=== PATIENT | male | born 1980 | race American Indian/Alaskan Native ===

== ENCOUNTER 2017-06-14 19:22 | Emergency (ER) | payer OTHER ==
[2017-06-14] MEDS ORDERED: TYLENOL ONE (19:28)
[2017-06-14] MEDS ORDERED: TYLENOL PO ONE (19:31)
[2017-06-15 16:25] VITALS: BP 147/70
[2017-06-15 16:38] LABS: Bilirubin,Urine NEG (Negative); Blood,Urine NEG (Negative); Color,Urine Yellow (Yellow); Mucus,Urine FEW /HPF; Nitrite,Urine NEG (Negative); Protein,Urine <15 mg/dL mg/dL (Negative); Urobilinogen,Urine < 2.0 mg/dL (<2.0)
--- NOTE | 2017-06-15 16:41 | Emergency Department Report ---
ED Fever HPI - General Chief Complaint: Fever Stated Complaint: COLD SX Source: patient, family Exam Limitations: no limitations - History of Present Illness Initial Comments: 37 yo male who comes in today due to fever, chills, and body aches. He states that these complaints started on Tuesday of this week. 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 Also admits that other co-workers are having the same complaints. Temperature 101.6 in the ED on today. Denies any past medical history or allergies to medications. Timing/Duration: other (Tuesday) Fever Severity/Quality: other (101.6. 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 Associated Symptoms: muscle aches, other (back pain ) ED Review of Systems ROS: Stated complaint: COLD SX Other details as noted in HPI Constitutional: fever, malaise Eyes: denies: eye pain, eye discharge, vision change ENT: denies: ear pain, throat pain Respiratory: denies: cough, shortness of breath, wheezing Cardiovascular: denies: chest pain, palpitations Endocrine: no symptoms reported Gastrointestinal: denies: abdominal pain, nausea, diarrhea Genitourinary: denies: urgency, dysuria Musculoskeletal: back pain, other (body aches ) Skin: denies: rash, lesions Neurological: denies: headache, weakness, paresthesias Psychiatric: denies: anxiety, depression Hematological/Lymphatic: denies: easy bleeding, easy bruising ED Past Medical Hx - Past Medical History Previous Medical History?: No - Surgical History Past Surgical History?: No - Social History Smoking Status: Current Some Day Smoker Substance Use Type: Alcohol - Medications Home Medications: Home Medications Medication Instructions Recorded Confirmed Last Taken Type Oseltamivir [Tamiflu] 75 mg PO BID #10 cap 06/15/17 Unknown Rx ED Physical Exam - General Limitations: No Limitations General appearance: alert, in no apparent distress - Head Head exam: Present: atraumatic, normocephalic - Eye Eye exam: Present: normal appearance - ENT ENT exam: Present: mucous membranes moist - Neck Neck exam: Present: normal inspection - Respiratory Respiratory exam: Present: normal lung sounds bilaterally. Absent: respiratory distress - Cardiovascular Cardiovascular Exam: Present: regular rate, normal rhythm. Absent: systolic murmur, diastolic murmur, rubs, gallop - GI/Abdominal GI/Abdominal exam: Present: soft, normal bowel sounds - Extremities Exam Extremities exam: Present: normal inspection - Back Exam Back exam: Present: tenderness (bilateral lumbosacral tenderness ) - Neurological Exam Neurological exam: Present: alert, oriented X3 - Psychiatric Psychiatric exam: Present: normal affect, normal mood - Skin Skin exam: Present: warm, dry, intact, normal color. Absent: rash ED Course Vital Signs 06/14/17 06/15/17 19:29 16:24 Temperature 101.6 F H 98.3 F Pulse Rate 75 69 Respiratory 18 18 Rate Blood Pressure 119/69 Blood Pressure 147/70 [Right] O2 Sat by Pulse 100 100 Oximetry - Reevaluation(s) Reevaluation #1: 06/15/17 16:43 Temperature on re-eval 98.3 after tylenol. ED Medical Decision Making - Medical Decision Making Influenza swab negative. U/A revealed trace leukocyte esterase. Influenza Fever Viral syndrome - Differential Diagnosis Influenza, fever, viral syndrome Critical care attestation.: If time is entered above; I have spent that time in minutes in the direct care of this critically ill patient, excluding procedure time. ED Disposition Clinical Impression: Influenza, Fever Disposition: DC-01 TO HOME OR SELFCARE Is pt being admited?: No Does the pt Need Aspirin: No Condition: Undetermined Instructions: Influenza (ED), Fever in Adults (ED) Additional Instructions: Take medicine as prescribed. Please also see the fever instructions. May take tylenol 650 mg by mouth every 6-8 hours as needed for temperature greater than 100.4. Remember to hydrate also until better. Prescriptions: Oseltamivir [Tamiflu] 75 mg PO BID #10 cap Referrals: DANA SHETTY MD [Primary Care Provider] - 3-5 Days Time of Disposition: 17:07
== END 2017-06-15 17:33 | disposition home or self-care (01) ==
LOC: ED 19:22
DX: J11.1 Influenza due to unidentified influenza virus with other respiratory manifestations (principal); R50.81 Fever presenting with conditions classified elsewhere; F17.200 Nicotine dependence, unspecified, uncomplicated
CPT/HCPCS: 81001; 87400; 99283

== ENCOUNTER 2019-11-03 16:12 | Emergency (ER) | payer SELFPAY ==
[2019-11-03 16:21] VITALS: BP 109/75
--- NOTE | 2019-11-03 17:00 | Emergency Department Report ---
Chief Complaint: Sore Throat Stated Complaint: THROAT PAIN - HPI History of Present Illness: 39-year-old -[place] male presents to the emergency room complaining of a sore throat this is been intermittent x1 month. Patient is taking nothing for pain just been using throat lozenges. 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 Patient denies any fever chills no nausea no vomiting. Patient denies any runny nose nasal congestion or headache. - Exam Vital Signs: Vital Signs 11/03/19 16:16 Temperature 98.3 F Pulse Rate 61 Respiratory 20 Rate Blood Pressure 109/75 O2 Sat by Pulse 96 Oximetry Physical Exam: Gen: alert oriented NAD HEENT: Oral mucosa moist patent tonsils are non-hypertrophic not erythematous there is no lymphadenopathy appreciated Cardic: regular rate and rhythm no murmurs appreciated Resp: Clear to auscultation bilateral no wheezing no rales or rhonchi. MSE screening note: Focused history and physical exam performed. Due to findings the following was ordered: 39-year-old -[place] male presents to the emergency room complaining of a sore throat this is been intermittent x1 month. Patient is taking nothing for pain just been using throat lozenges. 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 Patient denies any fever chills no nausea no vomiting. Patient denies any runny nose nasal congestion or headache. Recommend taking [id number] Tylenol or ibuprofen or naproxen for pain management. Follow-up with your primary care provider. ED Disposition for MSE Disposition: Z- MED SCREENING EXAM-LEFT Is pt being admited?: No Does the pt Need Aspirin: No Condition: Stable Additional Instructions: Recommend taking [id number] Tylenol or ibuprofen or naproxen. Follow-up with the primary care provider. Referrals: JOAQUIN RAI MD [Staff Physician] - 3-5 Days Forms: Work/School Release Form(ED)
== END 2019-11-03 17:04 | disposition left against medical advice (07) ==
LOC: ED 16:12
DX: R07.0 Pain in throat (principal); Z53.21 Procedure and treatment not carried out due to patient leaving prior to being seen by health care provider

== ENCOUNTER 2021-02-13 16:42 | Emergency (ER) | payer SELFPAY ==
[2021-02-13 17:20] VITALS: BP 132/86
[2021-02-13] MEDS ORDERED: IBUPROFEN 600 MG TAB PO ONE (17:20)
--- NOTE | 2021-02-13 17:21 | Emergency Department Report ---
ED General Adult HPI - General Chief complaint: Chest Pain Stated complaint: CHEST PAIN Time Seen by Provider: 02/13/21 17:07 Source: patient Mode of arrival: Ambulatory Limitations: No Limitations - History of Present Illness Initial comments: 40-year-old male who reports no significant past medical history presents to the ER today with complaints of left-sided chest pain. Patient points to his left upper mid axillary area as to where his pain is located. He states that the pain is mainly when he touches it. He denies any pain with deep breaths. He denies any shortness of breath, nausea, vomiting, cough, fever or chills. He denies any injury but does admit to strenuous activity at work. He has not tried taking anything for the pain. He states that he was concerned and wanted to come having it checked. He denies any extremity swelling or calf pain. He states that he vapes off and on no illicit drug use. He states that his mom has congestive heart failure with otherwise no known history of MIs, or any other family history of heart disease. He denies any risk factors for PE/DVT. MD Complaint: left chest pain underneath left arm -: Gradual (yesterday) - Related Data Previous Rx's Medication Instructions Recorded Last Taken Type Oseltamivir [Tamiflu] 75 mg PO BID #10 cap 06/15/17 Unknown Rx Ibuprofen [Motrin] 600 mg PO Q8H PRN #30 tablet 02/13/21 Unknown Rx Allergies Allergy/AdvReac Type Severity Reaction Status Date / Time No Known Allergies Allergy Unverified 06/14/17 19:29 ED Review of Systems ROS: Stated complaint: CHEST PAIN Other details as noted in HPI Comment: All other systems reviewed and negative Constitutional: denies: chills, fever Eyes: denies: eye pain, eye discharge, vision change ENT: denies: ear pain, throat pain Respiratory: denies: cough, shortness of breath, wheezing Cardiovascular: chest pain. denies: palpitations, edema, syncope, paroxysmal nocturnal dyspnea Gastrointestinal: denies: abdominal pain, nausea, vomiting, diarrhea, constip ation, hematemesis, hematochezia Genitourinary: denies: urgency, dysuria, frequency, hematuria, discharge, testicular pain, testicular mass Musculoskeletal: denies: back pain, joint swelling, arthralgia Skin: denies: rash, lesions, change in color, change in hair/nails, pruritus Neurological: denies: headache, weakness, numbness, paresthesias, confusion, abnormal gait, vertigo Psychiatric: denies: anxiety, depression, auditory hallucinations, visual hallucinations, homicidal thoughts, suicidal thoughts Hematological/Lymphatic: denies: easy bleeding, easy bruising ED Past Medical Hx - Surgical History Additional Surgical History: Umbilical hernia repair - Social History Smoking Status: Never Smoker Substance Use Type: Alcohol - Medications Home Medications: Home Medications Medication Instructions Recorded Confirmed Last Taken Type Oseltamivir [Tamiflu] 75 mg PO BID #10 cap 06/15/17 Unknown Rx Ibuprofen [Motrin] 600 mg PO Q8H PRN #30 tablet 02/13/21 Unknown Rx ED Physical Exam - General Limitations: No Limitations General appearance: alert, in no apparent distress - Head Head exam: Present: atraumatic, normocephalic, normal inspection - Eye Eye exam: Present: normal appearance, PERRL, EOMI Pupils: Present: normal accommodation - Neck Neck exam: Present: normal inspection, full ROM - Respiratory Respiratory exam: Present: normal lung sounds bilaterally, chest wall tenderness (mild point tenderness left upper mid axillary area without any swelling, erythema, deformity or bruising ). Absent: respiratory distress, wheezes, rales, rhonchi, stridor - Cardiovascular Cardiovascular Exam: Present: regular rate, normal rhythm, normal heart sounds - GI/Abdominal GI/Abdominal exam: Present: soft. Absent: distended, tenderness, normal bowel sounds - Extremities Exam Extremities exam: Present: normal inspection. Absent: pedal edema, calf tenderness - Neurological Exam Neurological exam: Present: alert, oriented X3, CN II-XII intact, normal gait - Psychiatric Psychiatric exam: Present: normal affect, normal mood - Skin Skin exam: Present: intact ED Course Vital Signs 02/13/21 17:01 Pulse Rate 77 Respiratory 18 Rate Blood Pressure 132/86 O2 Sat by Pulse 99 Oximetry ED Medical Decision Making - Radiology Data Radiology results: report reviewed Patient: DEIDRA GAMEZ MR#: [id number] : 1980 Acct:[id number] Age/Sex: 40 / M ADM Date: 02/13/21 Loc: ED Attending Dr: Ordering Physician: LETI EAGLE Date of Service: 02/13/21 Procedure(s): XR chest routine 2V Accession Number(s): [id number] cc: LETI EAGLE Fluoro Time In Minutes: CHEST 2 VIEWS INDICATION / CLINICAL INFORMATION: left chest pain. COMPARISON: None available. FINDINGS: SUPPORT DEVICES: None. HEART / MEDIASTINUM: No significant abnormality. LUNGS / PLEURA: No significant pulmonary or pleural abnormality. No pneumothorax. ADDITIONAL FINDINGS: No significant additional findings. IMPRESSION: 1. No acute findings. Signer Name: Ernie Bunch MD Signed: 02/13/2021 5:33 PM Workstation Name: [id number] Transcribed By: CAROL Dictated By: Ernie Bunch MD Electronically Authenticated By: Ernie Bunch MD Signed Date/Time: 02/13/211732 DD/ 32 - Medical Decision Making Chest x-ray shows nothing acute. EKG shows normal sinus rhythm with some LVH changes but otherwise normal standing, no acute ischemic changes for the significant dysrhythmias. On exam patient has point tenderness to palpation to his left lateral chest wall at the upper mid axillary area which reproduces his pain. Patient is not toxic nor is he ill appearing, is not in any acute d istress. He is neurologically intact with normal gait. His vital signs are stable. Suspect patient pain is musculoskeletal at this time. He vapes but otherwise no other risk factors for CAD, or PE. I do not suspect STEMI, acute coronary syndrome, PE, dissection or any other significant emergent conditions warranting additional testing at this time. discussed suspected dx and treatment plan with patient. Patient expressed understanding of all instructions and agree with plan. Patient was stable at time of discharge. Critical care attestation.: If time is entered above; I have spent that time in minutes in the direct care of this critically ill patient, excluding procedure time. ED Disposition Clinical Impression: Chest wall pain Disposition: HOME / SELF CARE / HOMELESS Is pt being admited?: No Does the pt Need Aspirin: No Condition: Stable Instructions: Chest Wall Pain, [id number] Additional Instructions: I recommend that you take motrin as prescribed. Follow up with your PCP next week. Return to ED if worse. Prescriptions: Ibuprofen [Motrin] 600 mg PO Q8H PRN #30 tablet PRN Reason: Pain Referrals: JOAQUIN RAI MD [Staff Physician] - 3-5 Days [facility] [Provider Group] - 3-5 Days Forms: Work/School Release Form(ED) Time of Disposition: 17:53 Print Language: [place]
--- NOTE | 2021-02-13 17:37 | XRay Report ---
CHEST 2 VIEWS INDICATION / CLINICAL INFORMATION: left chest pain. COMPARISON: None available. FINDINGS: SUPPORT DEVICES: None. HEART / MEDIASTINUM: No significant abnormality. LUNGS / PLEURA: No significant pulmonary or pleural abnormality. No pneumothorax. ADDITIONAL FINDINGS: No significant additional findings. IMPRESSION: 1. No acute findings. Signer Name: Ernie Bunch MD Signed: 02/13/2021 5:33 PM Workstation Name: [id number]
--- NOTE | 2021-02-14 14:50 | Electrocardiograph Report ---
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
== END 2021-02-13 17:57 | disposition home or self-care (01) ==
LOC: ED 16:42
DX: R07.89 Other chest pain (principal); Z98.890 Other specified postprocedural states
CPT/HCPCS: 71046; 93005; 99283